=== PATIENT | male | born 1945 | race Caucasian/White ===

== ENCOUNTER → 2017-01-29 | Outpatient (REF) | payer MEDICARE, OTHER ==
[~2017-01-29] MED LIST: AMLO2.5T PO; ATOR1TAB19 PO; BENA40TA7 PO; ESCI10TA2 PO; MELO7.5T7 PO; OMEP20TA PO
== END ==
LOC: M SMT 12:49
PROVIDERS: ATTEND Nurse Practitioner Women's Health
DX: N30.80 Other cystitis without hematuria (principal)
CPT/HCPCS: 81001; 87086; 88108; G0463

== ENCOUNTER 2017-12-14 10:58 | Inpatient (IN) | payer MEDICARE, OTHER ==
[2017-12-14] MEDS ORDERED: LIDOCAINE 1% MDV 20ML VIAL SQ (11:15)
[2017-12-14] MEDS: LR 1,000 ML IV ×3 (12:20→16:30)
[2017-12-14] MEDS ORDERED: fentaNYL 100 MCG/2 ML INJECTION (J3010) As Ordered ×3 (13:39→15:57)
[2017-12-14] MEDS ORDERED: MIDAZOLAM INJ 2 MG/2 ML VIAL (J2250) As Ordered ×2 (13:39→14:43)
[2017-12-14] MEDS ORDERED: ROCURONIUM BROMIDE 50 MG/5 ML VIAL As Ordered (14:43)
[2017-12-14] MEDS: MIDAZOLAM INJ 2 MG/2 ML VIAL (J2250) IV ×2 (14:45→14:50)
[2017-12-14] MEDS: fentaNYL 100 MCG/2 ML INJECTION (J3010) IV ×2 (14:45→14:50)
[2017-12-14] MEDS: TRANEXAMIC ACID 100 MG/ML 10ML VIAL As Ordered (15:11)
[2017-12-14] MEDS: ceFAZolin 1GM INJ (J0690 PER 500MG) As Ordered (15:11)
[2017-12-14] MEDS: EPINEPHrine INJ 1 MG/ML 1ML AMP As Ordered (15:11)
[2017-12-14] MEDS ORDERED: GLYCOPYRROLATE INJ 0.2 MG/ML 2 ML VIAL As Ordered ×2 (15:25)
[2017-12-14] MEDS ORDERED: dexameTHASONE 4 MG/ML 1ML VIAL (J1100) As Ordered ×2 (15:25)
[2017-12-14] MEDS ORDERED: PROPOFOL 200 MG/20 ML VIAL As Ordered (15:25)
[2017-12-14] MEDS ORDERED: NEOSTIGMINE 10 MG/10 ML VIAL (J2710) As Ordered (15:25)
[2017-12-14] MEDS ORDERED: ONDANSETRON 4MG/2ML VIAL (J2405) As Ordered (15:25)
[2017-12-14] MEDS ORDERED: ROPIvacaine 0.5% 30 ML INJECTION (J2795 PER 1MG) (15:37)
[2017-12-14] MEDS ORDERED: LIDOCAINE 1% MDV 20ML VIAL (15:37)
[2017-12-14] MEDS: BUPIVACAINE LIPOSOME/PF 1.3% 20 ML VIAL (13.3MG/ML)(EXPAREL) As Ordered (15:50)
[2017-12-14] MEDS ORDERED: ePHEDrine SULFATE 25 MG/5 ML(5MG/ML) SYRINGE As Ordered (16:12)
[2017-12-14] MEDS ORDERED: MORPHINE 1MG/ML IN 0.9% NACL 100ML IV BAG As Ordered (16:18)
[2017-12-14] MEDS ORDERED: diphenhydrAMINE INJ 50MG/ML VIAL (J1200) IV (16:30)
[2017-12-14] MEDS ORDERED: ACETAMINOPHEN TAB 650MG DOSE (2X325MG) PO (16:30)
[2017-12-14] MEDS ORDERED: fentaNYL 100 MCG/2 ML INJECTION (J3010) IV (16:30)
[2017-12-14] MEDS ORDERED: PERCOCET 5MG/325MG TAB PO (16:30)
[2017-12-14] MEDS ORDERED: ONDANSETRON 4MG/2ML VIAL (J2405) IV ×2 (16:30)
[2017-12-14] MEDS ORDERED: FLEET ENEMA PR (16:30)
[2017-12-14] MEDS ORDERED: NALOXONE INJ 0.4 MG/1 ML VIAL (J2310) IV (16:30)
[2017-12-14] MEDS ORDERED: NALBUPHINE HCL 10 MG/ML AMP (J2300) IV (16:30)
[2017-12-14] MEDS ORDERED: MORPHINE 10 MG/ML 1ML VIAL (J2270) IV (16:30)
[2017-12-14] MEDS: MORPHINE 1MG/ML IN 0.9% NACL 100ML IV BAG IV (16:45)
[2017-12-14] MEDS: EPIDURAL/PCA KEYS XX (16:45)
[2017-12-14] MEDS: ONDANSETRON 4MG/2ML VIAL (J2405) IV (16:50)
[2017-12-14] MEDS: METOCLOPRAMIDE INJ 10MG/2ML VIAL (J2765) IV (17:25)
[2017-12-15] MEDS: LR 1,000 ML IV (05:21)
[2017-12-15] MEDS ORDERED: ONDANSETRON 4 MG TAB (S0181) PO (07:00)
[2017-12-15] MEDS ORDERED: PERCOCET 5MG/325MG TAB PO (07:00)
[2017-12-15 07:04] LABS: HEMATOCRIT 43.5 % (42.0-52.0); HEMOGLOBIN 15.3 g/dl (13.5-17.5); MEAN CORPUSCULAR HEMOGLOBIN 31.2 pg (27.0-33.0); MEAN CORPUSCULAR HGB CONC 35.2 g/dl (32.0-36.5); MEAN CORPUSCULAR VOLUME 88.6 fl (80.0-96.0); PLATELET COUNT, AUTOMATED 185 10^3/uL (150-450); RED BLOOD COUNT 4.91 10^6/uL (4.30-6.10); RED CELL DISTRIBUTION WIDTH 12.4 % (11.5-14.5); WHITE BLOOD COUNT 13.6 10^3/uL (4.0-10.0)
[2017-12-15 07:24] LABS: ANION GAP 12 MEQ/L (8-16); BLOOD UREA NITROGEN 21 MG/DL (7-18); CALCIUM LEVEL 8.1 MG/DL (8.8-10.2); CARBON DIOXIDE LEVEL 26 MEQ/L (21-32); CHLORIDE LEVEL 102 MEQ/L (98-107); CREATININE FOR GFR 1.15 MG/DL (0.70-1.30); GLOMERULAR FILTRATION RATE > 60.0 (>42); GLUCOSE, FASTING 141 MG/DL (70-100); POTASSIUM SERUM 4.2 MEQ/L (3.5-5.1); SODIUM LEVEL 140 MEQ/L (136-145)
[2017-12-15] MEDS: MOM 30ML SUSPENSION UDC PO (09:00)
[2017-12-15] MEDS: MIRALAX *UNIT DOSE* 17GM PACKET PO (09:00)
[2017-12-15] MEDS: RIVAROXABAN 10 MG TAB (XARELTO) PO (10:02)
[2017-12-15] MEDS: OMEPRAZOLE 20 MG CAP PO (10:04)
[2017-12-15] MEDS: BENAZEPRIL 20 MG TAB PO (10:05)
[2017-12-15] MEDS: SENOKOT S TAB PO (10:09)
[2017-12-15] MEDS: PERCOCET 5MG/325MG TAB PO (11:26)
== END 2017-12-15 14:10 | disposition home or self-care (01) | DRG 470 ==
LOC: M OR 10:58 → M MS5PR 19:58
PROC: 0SRC069 Replacement of Right Knee Joint with Oxidized Zirconium on Polyethylene Synthetic Substitute, Cemented, Open Approach (ICD-10-PCS; principal; 2017-12-14 14:19)
DX: M17.11 Unilateral primary osteoarthritis, right knee (principal); Z79.899 Other long term (current) drug therapy; I10 Essential (primary) hypertension; E78.5 Hyperlipidemia, unspecified; K21.9 Gastro-esophageal reflux disease without esophagitis; Z85.51 Personal history of malignant neoplasm of bladder

== ENCOUNTER → 2020-12-06 | Outpatient (REF) | payer MEDICARE, OTHER ==
[~2020-12-06] MED LIST changes: -AMLO2.5T PO; +AMLO2.5T3 PO; +BENA40TA5 PO; -BENA40TA7 PO; +ESCI10TA16 PO; -ESCI10TA2 PO; +HYDR12CA PO; +MAGN1TAB26 PO; +OMEP-358 PO; -OMEP20TA PO; +PERC5TAB12 PO; +POTA99TA PO; +VITA10006 PO; +XARE10TA PO
[2020-12-06 13:40] LABS: BLOOD UREA NITROGEN 17 MG/DL (7-18); CALCIUM LEVEL 9.4 MG/DL (8.8-10.2); CARBON DIOXIDE LEVEL 29 MEQ/L (21-32); CHLORIDE LEVEL 106 MEQ/L (98-107); CREATININE FOR GFR 1.04 MG/DL (0.70-1.30); GLOMERULAR FILTRATION RATE > 60.0 (>42); GLUCOSE, FASTING 87 MG/DL (70-100); POTASSIUM SERUM 3.7 MEQ/L (3.5-5.1); SODIUM LEVEL 139 MEQ/L (136-145)
== END ==
LOC: M PLALAB 12:48
PROVIDERS: ATTEND Specialist
DX: N28.9 Disorder of kidney and ureter, unspecified (principal)
CPT/HCPCS: 36415; 80048; G0463

== ENCOUNTER → 2020-12-17 | Outpatient (CLI) | payer MEDICARE, OTHER ==
[~2020-12-17] MED LIST changes: +ISOVUE-370 76% 100ML VIAL As Ordered ONE
--- NOTE | 2020-12-17 10:59 | REP ---
INDICATION: RENAL LESIONS. COMPARISON: 11/29/2020 from an outside institution a noncontrast enhanced exam TECHNIQUE: Standard helical technique before and after the intravenous administration of 100 cc Isovue 370. No oral bowel preparatory contrast was administered prior to the exam. FINDINGS: There is no change in lung bases. There is mild cylindrical bronchiectasis. There are no pleural or pericardial effusions. The pre contrast enhanced portion examination shows a patent splenic densities to be unchanged. There are no choleiths. Note is again made of multiple left nephroliths. There is an unchanged nonobstructing right nephrolith. The left-sided hydronephrosis seen on the prior exam has resolved. There are multiple bilateral subcentimeter sized low-density renal lesions none of which have perceptible contrast-enhancement but some of which are too small for precise CT characterization. The largest lesion is seen in the right kidney interpolar region measuring 1.5 cm. There is a 3.6 cm sized suprarenal abdominal aortic aneurysm. 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 There is no free fluid or free air. There is no significant change in appearance of the osseous structures. IMPRESSION: 1. Bilateral nephroliths as described above. 2. Multiple low-density renal lesions as described above likely small simple cysts, however, since some are too small for precise CT characterization they will be classified as indeterminate at this time and a three-month follow-up examination is recommended. The follow-up examination can be either pre and post contrast enhanced CT or pre and post gadolinium enhanced MRI. 3. Abdominal aortic aneurysm as described above. 4. Other findings as described above. <Electronically signed by Luis Perez > 12/17/20 [id number]
== END ==
LOC: M RAD 08:28
PROVIDERS: ATTEND Specialist
DX: N28.9 Disorder of kidney and ureter, unspecified (principal)
CPT/HCPCS: 74170; Q9967

== ENCOUNTER → 2021-03-25 | Outpatient (CLI) | payer MEDICARE, OTHER ==
[~2021-03-25] MED LIST changes: -ISOVUE-370 76% 100ML VIAL As Ordered ONE
== END ==
LOC: M PLAIMG 11:06
PROVIDERS: ATTEND Nurse Practitioner Family
DX: Z53.9 Procedure and treatment not carried out, unspecified reason (principal); N28.9 Disorder of kidney and ureter, unspecified

== ENCOUNTER → 2021-03-26 | Outpatient (CLI) | payer MEDICARE, OTHER ==
[2021-03-26 14:09] LABS: BLOOD UREA NITROGEN 23 MG/DL (7-18); CALCIUM LEVEL 9.3 MG/DL (8.8-10.2); CARBON DIOXIDE LEVEL 27 MEQ/L (21-32); CHLORIDE LEVEL 106 MEQ/L (98-107); CREATININE FOR GFR 1.11 MG/DL (0.70-1.30); GLOMERULAR FILTRATION RATE > 60.0 (>42); GLUCOSE, FASTING 117 MG/DL (70-100); POTASSIUM SERUM 3.7 MEQ/L (3.5-5.1); SODIUM LEVEL 140 MEQ/L (136-145)
== END ==
LOC: M PLALAB 09:36
PROVIDERS: ATTEND Nurse Practitioner Family
DX: N28.9 Disorder of kidney and ureter, unspecified (principal)

== ENCOUNTER → 2021-04-05 | Outpatient (CLI) | payer MEDICARE, OTHER ==
[~2021-04-05] MED LIST changes: +ISOVUE-370 76% 100ML VIAL ONE
--- NOTE | 2021-04-05 12:05 | REP ---
INDICATION: DISORDER OF KIDNEY AND URETER, UNSPECIFIED. COMPARISON: 12/17/2020, 11/29/2020 TECHNIQUE: Axial precontrast, contrast-enhanced and delayed images of the abdomen using 100 cc Isovue 370 intravenous contrast material. Coronal and sagittal reformations obtained. This CT examination was performed using the following dose reduction techniques: Automated exposure control, adjustment of mA and/or kv according to the patient's size, and the use of iterative reconstruction technique. FINDINGS: Evaluation of the kidneys demonstrates 2 mm nonobstructing right renal calculus and few nonobstructing left renal calculi up to 4 mm without perinephric stranding, hydroureteronephrosis or obstructing ureteral calculi. Bilateral hypodensities measuring up to 16 mm in the right kidney and 12 mm in the left kidney remain essentially stable low-density throughout the examination and most compatible with simple and mildly complex cysts. No obvious renal mass lesion is appreciated. Liver, spleen, pancreas, gallbladder, and bilateral adrenal glands are essentially normal/stable. Pancreatic calcifications consistent with chronic pancreatitis. Visualized portions of the enteric system again demonstrate stable large duodenal diverticulum. Colonic diverticulosis are also noted along with normal terminal ileum and appendix. No ascites. No free air. Stable infrarenal abdominal aortic aneurysm measuring roughly 3.5 cm maximal diameter noted. IMPRESSION: 1. Kidneys demonstrate nonobstructing nephroliths and bilateral simple/complex cysts. No suspicious renal lesions are identified. 2. Stable aortic aneurysm at 3.5 cm maximal diameter. 3. Diverticulosis without acute diverticulitis. <Electronically signed by Evin Ferreira > 04/05/21 [id number]
== END ==
LOC: M PLAIMG 10:54
PROVIDERS: ATTEND Nurse Practitioner Family
DX: N20.2 Calculus of kidney with calculus of ureter (principal); I71.4 Abdominal aortic aneurysm, without rupture; K57.30 Diverticulosis of large intestine without perforation or abscess without bleeding; N28.9 Disorder of kidney and ureter, unspecified
CPT/HCPCS: 74170; Q9967

== ENCOUNTER → 2022-04-03 | Outpatient (CLI) | payer MEDICARE, OTHER ==
[~2022-04-03] MED LIST changes: -BENA40TA5 PO; +BENA40TA84 PO; -ISOVUE-370 76% 100ML VIAL ONE
== END ==
LOC: M RAD 13:31
PROVIDERS: ATTEND Nurse Practitioner Women's Health
DX: N28.9 Disorder of kidney and ureter, unspecified (principal); N20.0 Calculus of kidney

== ENCOUNTER → 2023-03-12 | Outpatient (CLI) | payer MEDICARE, OTHER | LOC: M RAD 09:13 | PROVIDERS: ATTEND Physician Assistant | DX: N28.1 Cyst of kidney, acquired (principal) ==